=== PATIENT | male | born 1995 | race Caucasian/White ===

== ENCOUNTER 2024-08-18 23:53 | Emergency (ER) | payer BC, SELFPAY ==
[2024-08-19 00:16] VITALS: BP 126/86
--- NOTE | 2024-08-19 01:22 | ED.GENMED ---
History of Present Illness
General
Chief Complaint: Abdominal Symptoms
Time Seen by Provider: 08/19/24 01:21
History of Present Illness
History of Present Illness:
TIME OF INITIAL ENCOUNTER: 1:30 AM
HPI: The patient had relatively abrupt onset abdominal discomfort which progressed into nausea and vomiting then dry heaves. He then developed a panic attack. He has had issues with anxiety/panic in the past. He has never been on quick acting
anxiety medication. He currently does not have any significant pain.
EXAM:
GENERAL: Well appearing in no distress
HEENT: Moist oral mucosa
CARDIOVASCULAR: No murmurs, normal heart rate, regular rhythm, No chest wall tenderness
PULMONARY: No respiratory distress, breath sounds are clear and equal
ABDOMEN: Soft with no peritoneal signs, no tenderness
NEUROLOGIC: Excellent strength all extremities, no coordination deficits
PSYCHIATRIC: Appropriate mental status, normal insight and judgement, appears somewhat anxious
EXTREMITIES: Nontender, no edema, moves all extremities equally
SKIN: Appears pale
NUMBER AND COMPLEXITY OF PROBLEMS ADDRESSED AT THE ENCOUNTER
� Chronic conditions affecting care: No significant past medical history
� Acute Exacerbation and/or Progression of Chronic Illness: This is an acute problem
� Differential Diagnosis includes: Anxiety, dehydration, viral syndrome, foodborne illness, electrolyte abnormality
AMOUNT AND/OR COMPLEXITY OF DATA TO BE REVIEWED AND ANALYZED
� I performed an independent evaluation of and my interpretation is:
EKG:
CT:
X-rays:
Laboratory Studies: White count 13.3, hemoglobin normal, BUN 23, bicarb 21, glucose 169, total bili 1.5 but otherwise LFTs normal, lipase normal
Other:
� Review of other/old records: No old records available for review
� Clinical information was obtained by an independent historian: I spoke to girlfriend at bedside
� Prescriptions/Medications Considered but not given: Considered anxiolytics however given the high addiction potential recommend against.
� Further testing considered but not performed:
RISK OF COMPLICATIONS AND/OR MORBIDITY OR MORTALITY OF PATIENT MANAGEMENT
� Social determinants of health affecting care: Lives in [place], just visiting grandparents
� Discussion with other providers:
� Escalation of care including admission/observation vs risk of discharge considered: The patient was given IV fluids
ANY OTHER UPDATES:
2:15 AM: I reassessed patient. Patient feels markedly improved. States that his overall color appears improved. There may be a strong anxiety component. He will follow-up with his doctors in [place].
Phy Exam
Physical Exam
Physical Exam:
See HPI
Course
Orders/Labs/Results
Orders:
Orders
08/19/24 01:36
0.9% Sodium Chloride 1000 ml [Nss] 1,000 ml IV BOLUS
Lorazepam [Ativan] 0.5 mg IV NOW STA
Ondansetron Injectable [Zofran] 4 mg IV NOW STA
08/19/24 01:47
Complete Blood Count/With Diff Urgent
Comprehensive Metabolic Panel Urgent
Lipase Urgent
Abnormal Lab Results
08/19/24
01:47
WBC 13.3 H 10^3/uL
(4.8-10.8)
RBC 4.51 L 10^6/uL
(4.70-6.10)
MCH 31.7 H pg
(27.0-31.0)
RDW 11.3 L %
(11.5-14.5)
Abs Immat Gran (auto) 0.1 H 10^3/uL
(0-0.05)
Absolute Neuts (auto) 11.5 H 10^3/uL
(1.4-6.5)
Absolute Lymphs (auto) 0.8 L 10^3/uL
(1.2-3.4)
Absolute Monos (auto) 0.8 H 10^3/uL
(0.1-0.6)
Neutrophils % 86.3 H %
(42.2-75.2)
Lymphocytes % 6.1 L %
(20.5-51.1)
Carbon Dioxide 21 L mmol/L
(22-30)
BUN 23 H mg/dl
(9-20)
Glucose 169 H mg/dl
(70-99)
Total Bilirubin 1.5 H mg/dl
(0.2-1.3)
Albumin 5.1 H g/dl
(3.5-5.0)
08/19/24 01:47
08/19/24 01:47
Vital Signs
Initial and Last Documented VS:
Initial Vital Signs
Temp Pulse Resp BP Pulse Ox
36.8 C 126 26 126/86 100
08/19/24 00:16 08/19/24 00:16 08/19/24 00:16 08/19/24 00:16 08/19/24 00:16
Last Documented Vital Signs
Temp Pulse Resp BP Pulse Ox
36.8 C 126 26 126/86 100
08/19/24 00:16 08/19/24 00:16 08/19/24 00:16 08/19/24 00:16 08/19/24 00:16
*Critical Care Note
Total Time (30-74mins, 75-104mins- exclusive of procedures): Not Applicable
ED Attending Note
-
Portions of this chart may have been created with voice recognition software.� Occasional wrong word or��sound alike� substitutions may have occurred due to the inherent limitations of voice recognition software.
Discharge Plan
Departure
Patient Disposition: Home (Routine Discharge)
Date of Disposition: 08/19/24
Time of Disposition: 02:19
Patient with high blood pressure during this ER visit?: Yes
Discharge Problem:
Acute viral syndrome
Instructions: Nausea and Vomiting, Adult (DC), BLOOD PRESSURE
Activity Restrictions/Additional Instructions:
Your white blood cell count is slightly high, your glucose level is 169 which is rather high for not eating for 7 hours, total bili is slightly elevated 1.5 but the rest of your liver numbers as well as your pancreas test are all normal. We gave
you a liter of fluid. We also gave you nausea medicine and half of a milligram of Ativan. Follow-up your primary care doctor.
Interventions
Interventions:
*Risk Screen - Suicide Last Done: 08/19/24 00:16
*Neglect/Abuse Screening Last Done: 08/19/24 00:16
ED- Fall Risk Assessment Last Done: 08/19/24 01:57
CX-Zaitxw-Jcatwuewbe Assessment Last Done: 08/19/24 01:57
Discharge Date and Time
Print Language: KAZAKH
[2024-08-19] MEDS: ATIVAN 0.5 MG IV (01:47)
[2024-08-19] MEDS: ZOFRAN 4 MG IV (01:47)
[2024-08-19] MEDS: NSS 1000 IV (01:47)
[2024-08-19 01:56] LABS: % Basophils 0.3 % (0-2); % Eosinophils 0.9 % (0-6); % Immature Granulocytes 0.4 % (0-0.5); % Lymphocytes 6.1 % (20.5-51.1); % Neutrophils 86.3 % (42.2-75.2); Absolute Eosinophils 0.1 10^3/uL (0-0.7); Absolute Immature Granulocytes 0.1 10^3/uL (0-0.05); Absolute Lymphocytes 0.8 10^3/uL (1.2-3.4); Absolute Monocytes 0.8 10^3/uL (0.1-0.6); Absolute Neutrophils 11.5 10^3/uL (1.4-6.5); Hematocrit 41.5 % (39.0-52.0); Hemoglobin 14.3 g/dL (13.0-18.0); Mean Corp Hgb Conc. 34.5 g/dL (33.0-37.0); Mean Corpuscular Hgb 31.7 pg (27.0-31.0); Mean Platelet Volume 10.2 fL (7.4-10.4); Nucleated Red Blood Cells % 0 % (-); Platelet Count 174 10^3/uL (130-400); Red Blood Cell Count 4.51 10^6/uL (4.70-6.10); Red Cell Dist. Width 11.3 % (11.5-14.5); White Blood Cell Count 13.3 10^3/uL (4.8-10.8)
[2024-08-19 02:07] LABS: ALT (SGPT) 44 U/L (0-50); AST (SGOT) 39 U/L (17-59); Albumin 5.1 g/dl (3.5-5.0); Alkaline Phosphatase 68 U/L (38-126); Blood Urea Nitrogen 23 mg/dl (9-20); Calcium 9.8 mg/dl (8.4-10.2); Carbon Dioxide 21 mmol/L (22-30); Chloride 105 mmol/L (98-107); Glucose 169 mg/dl (70-99); Lipase 73 U/L (23-300); Sodium 141 mmol/L (135-145); Total Bilirubin 1.5 mg/dl (0.2-1.3); Total Protein 7.5 g/dl (6.3-8.2); eGFR > 60.00
[2024-08-19 02:51] VITALS: BP 123/80
== END 2024-08-19 02:58 | disposition home or self-care (01) ==
LOC: EMR 23:53
PROVIDERS: EMERGENCY PHYSICIAN Emergency Medicine
DX: B34.9 Viral infection, unspecified (principal); R11.2 Nausea with vomiting, unspecified; R10.9 Unspecified abdominal pain; R03.0 Elevated blood-pressure reading, without diagnosis of hypertension; F41.0 Panic disorder [episodic paroxysmal anxiety]; F41.9 Anxiety disorder, unspecified
CPT/HCPCS: 99284; 96374; 96375; 96361; 80053; 83690; 85025